=== PATIENT | male | born 1990 | race Caucasian/White ===

== ENCOUNTER 2021-01-02 01:48 | Emergency (ER) | payer MEDICAID ==
[~2021-01-02] VITALS: Ht 180.3 cm; Wt 155.0 kg
[2021-01-02] MEDS ORDERED: LORAZEPAM 0.5MG TABLET PO ONE (02:45)
[2021-01-02] MEDS ORDERED: LORA-249 PO (03:07)
[2021-01-02 03:12] VITALS: BP 134/81
== END 2021-01-02 03:16 | disposition home or self-care (01) ==
LOC: ER 01:48
DX: J02.9 Acute pharyngitis, unspecified (principal); F41.9 Anxiety disorder, unspecified
CPT/HCPCS: 99283

== ENCOUNTER 2023-08-23 13:23 | Emergency (ER) | payer MEDICAID, OTHER ==
[~2023-08-23] VITALS: Ht 180.3 cm; Wt 150.0 kg
[~2023-08-23 13:23] MED LIST: LORA-249 PO
[2023-08-23 13:35] VITALS: BP 146/93; PULSE 92; RESP 18; TEMP 98.4; O2SAT 99
[2023-08-23 14:21] LABS: EOSINOPHILS % 0.8 % (0.0-5.0); HEMOGLOBIN. 15.2 g/dL (14.0-18.0); LYMPHOCYTES % 31.7 % (20.0-50.0); MEAN CORPUSCULAR HGB CONC 34.4 g/dL (31.0-37.0); MEAN CORPUSCULAR VOLUME 87.3 fL (80.0-94.0); MEAN PLATELET VOLUME 8.4 fl (7.4-10.4); MONOCYTES % 5.1 % (2.0-8.0); NEUTROPHILS % 61.4 % (40.0-76.0); PLATELET 271 x1000/uL (130-400); RED BLOOD CELL COUNT 5.05 mill/uL (4.7-6.1); RED CELL DISTRIBUTION WIDTH 13.1 % (11.6-14.6); WHITE BLOOD COUNT 6.9 x1000/uL (4.5-11.0)
[2023-08-23 14:25] LABS: CHLORIDE 104 mEq/L (98-107); SODIUM 139 mEq/L (136-145)
[2023-08-23 14:26] LABS: CALCIUM 10.2 mg/dL (8.7-10.4); CARBON DIOXIDE 28 mEq/L (21-32)
[2023-08-23 14:31] LABS: CREATININE 0.9 mg/dL (0.6-1.3); GLUCOSE 90 mg/dL (70-105); UREA NITROGEN BLOOD 13 mg/dL (9-23)
[2023-08-23 14:35] LABS: TROPONIN I HIGH SENSITIVITY < 4 ng/L (3.0-53)
[2023-08-23] MEDS ORDERED: PANT40TA51 MT (16:55)
== END 2023-08-23 17:36 | disposition home or self-care (01) ==
LOC: ER 13:23
DX: R07.89 Other chest pain (principal)
CPT/HCPCS: 36415; 71045; 80048; 84484; 85025; 93005; 99285